=== PATIENT | female | born 1975 | race African-American/Black ===

== ENCOUNTER 2017-09-08 06:50 | Emergency (ER) | payer OTHER ==
[~2017-09-08] VITALS: Ht 167.6 cm; Wt 67.8 kg
[2017-09-08 07:49] VITALS: BP 175/115
== END 2017-09-08 07:49 | disposition home or self-care (01) ==
LOC: EME 06:50
DX: S00.83XA Contusion of other part of head, initial encounter (principal); S00.31XA Abrasion of nose, initial encounter; V74.6XXA Passenger on bus injured in collision with heavy transport vehicle or bus in traffic accident, initial encounter; Y92.410 Unspecified street and highway as the place of occurrence of the external cause